=== PATIENT | male | born 1945 | race Caucasian/White ===

== ENCOUNTER 2023-05-07 15:06 | Outpatient (RCR) | payer MEDICARE, SELFPAY | END 2023-05-07 23:59 | disposition home or self-care (01) | LOC: CRHB 15:06 | PROVIDERS: ATTENDING PHYSICIAN Internal Medicine Cardiovascular Disease | DX: I25.118 Atherosclerotic heart disease of native coronary artery with other forms of angina pectoris (principal) | CPT/HCPCS: G0422; G0423 ==

== ENCOUNTER 2023-06-04 15:00 | Outpatient (RCR) | payer MEDICARE, SELFPAY | END 2023-06-04 23:59 | disposition home or self-care (01) | LOC: CRHB 15:00 | PROVIDERS: ATTENDING PHYSICIAN Internal Medicine Cardiovascular Disease | DX: I25.118 Atherosclerotic heart disease of native coronary artery with other forms of angina pectoris (principal) | CPT/HCPCS: G0422; G0423 ==

== ENCOUNTER 2023-07-02 13:20 | Outpatient (RCR) | payer MEDICARE, SELFPAY | END 2023-07-02 23:59 | disposition home or self-care (01) | LOC: CRHB 13:20 | PROVIDERS: ATTENDING PHYSICIAN Internal Medicine Cardiovascular Disease | DX: I25.118 Atherosclerotic heart disease of native coronary artery with other forms of angina pectoris (principal) | CPT/HCPCS: G0422; G0423 ==

== ENCOUNTER 2023-07-11 13:32 | Outpatient (RCR) | payer MEDICARE, SELFPAY | END 2023-07-11 23:59 | disposition home or self-care (01) | LOC: CRHB 13:32 | PROVIDERS: ATTENDING PHYSICIAN Internal Medicine Cardiovascular Disease; FAMILY PHYSICIAN Family Medicine | DX: I25.118 Atherosclerotic heart disease of native coronary artery with other forms of angina pectoris (principal) | CPT/HCPCS: G0422; G0423 ==

== ENCOUNTER 2024-10-02 00:42 | Inpatient (IN) | payer MEDICARE, SELFPAY ==
[2024-10-01 19:33] VITALS: BP 162/62
[2024-10-01 22:06] VITALS: BMI 46.3
[2024-10-01 22:19] VITALS: BP 138/68
[2024-10-01 22:27] LABS: Hematocrit 40.2 % (39.0-52.0); Hemoglobin 14.4 g/dL (13.0-18.0); Mean Corp Hgb Conc. 35.8 g/dL (33.0-37.0); Mean Corpuscular Volume 100.8 fL (80.0-94.0); Nucleated Red Blood Cells % 0 % (-); Platelet Count 141 10^3/uL (130-400); Red Cell Dist. Width 13.5 % (11.5-14.5)
[2024-10-01 22:47] LABS: ALT (SGPT) 18 U/L (0-50); AST (SGOT) 23 U/L (17-59); Albumin 3.9 g/dl (3.5-5.0); Alkaline Phosphatase 51 U/L (38-126); Blood Urea Nitrogen 21 mg/dl (9-20); Calcium 9.3 mg/dl (8.4-10.2); Carbon Dioxide 24 mmol/L (22-30); Chloride 104 mmol/L (98-107); Estimated Creatinine Clearance 85 ml/min; Glucose 96 mg/dl (70-99); Potassium 4.6 mmol/L (3.5-5.1); Sodium 133 mmol/L (135-145); Total Protein 6.4 g/dl (6.3-8.2); eGFR > 60.00
[2024-10-01] MEDS: NSS 1000 IV (23:54)
--- NOTE | 2024-10-01 23:54 | ED.GENMED ---
History of Present Illness
General
Chief Complaint: Skin Problem
Source: patient, spouse and previous hospital records (Outpatient cardiac rehab which completed September 2023)
Exam Limitations: none
Time Seen by Provider: 10/01/24 23:28
Nursing documentation reviewed up to this point in time: agreed with
History of Present Illness
History of Present Illness:
This is an 78-year-old obese gentleman who resides at home with his . He has history of hypertension, hyperlipidemia, CAD, prior history of CO as well as history of PTCA with stent to the right coronary artery.
He states approximately 1 week ago he noticed some redness to his left great toe about the nail. Self-treatment with lifting of the nail and applying local bacitracin resulted in resolution of redness and swelling of his left great toe but today he
noticed redness and pain left lower leg anterior aspect that has gotten progressively worse throughout the day today.
He has chronic swelling bilateral lower extremities left greater than right. Mild increase in global swelling left lower leg along with progressive redness left lower leg. He has not noticed a fever nor chills.
No history of diabetes, no history of similar episodes in the past. No recent trauma.
He was evaluated at urgent care today. Had blood work done that showed elevated white blood cell count of 18. Sent to the ED for further evaluation.
Past History
Past History
ED Past Medical History: CAD, GERD, HTN, Hypercholesterolemia and CO
ED Past Surgical History: Cardiac (PTCA with stent to the right coronary artery 2016. cardiac catheterization January 2023-blockage of right coronary artery-unamenable to PTCA recommended medical management versus CABG.)
Social History
Tobacco: Non-smoker
Alcohol: None
Personal:
Living: with family
Employment: Retired
Family History
Family History: Other (Noncontributory)
Phy Exam
Physical Exam
Physical Exam:
GENERAL: 78-year-old gentleman appears his stated age, awake and alert, pleasant, easily communicative. Accompanied by his . Low-grade fever of 100.3 �F noted.
EYE: anicteric
NECK: Supple, nontender, no meningismus, no significant adenopathy.
ENT: oral mucosa is moist. No rhinorrhea.
CARDIAC: Regular rate and rhythm. no murmur.
LUNGS: Clear breath sounds bilaterally, no acute respiratory distress, no wheezes/rales/rhonchi
ABDOMEN: Rotund, soft, nondistended, without focal tenderness, no r/g, no cvat. normoactive BS.
NEUROLOGICAL: Alert and oriented x3, no focal neuro deficits.
SKIN: Warm and dry, normal color, fair turgor. Left lower leg with global erythema most pronounced anterior aspect but circumferential. Left lower leg is warm to touch, mild local tenderness to palpation. Mildly tense global edema left lower
extremity. There is no lymphangitis. Bilateral distal toes are mildly dusky and mildly cool to touch.
MUSCULOSKELETAL: Bilateral lower extremity edema left greater than right. Dorsalis pedal pulses equal and palpable bilaterally. Peripheral pulses are full and equal b/l.
PSYCH: Normal and appropriate interaction.
Course
Orders/Labs/Results
Orders:
Orders
10/01/24 22:17
Complete Blood Count/With Diff Urgent
Comprehensive Metabolic Panel Urgent
10/01/24 23:37
Acetaminophen [Tylenol] 1,000 mg PO NOW STA
Piperacillin/Tazo 4.5 Gram [Zosyn] 4.5 gram in 100 ml IV NOW
10/01/24 23:45
0.9% Sodium Chloride 1000 ml [Nss] 1,000 ml IV BOLUS
10/01/24 23:51
Lactic Acid Urgent
Blood Culture Q30M
GILA Source: Blood/Venous
Specimen Description:
10/02/24 00:00
Blood Culture Q30M
GILA Source: Blood/Venous
Specimen Description:
CR Leg Tibia/fibula Left 2 Vw Urgent
Reason For Exam: cellulitis LLE, swelling-concern for SQ air
10/02/24 00:02
Blood Culture Urgent
GILA Source: Blood/Venous
Specimen Description:
10/02/24 00:13
Admit/Transfer Patient As Directed
Co-Sign Provider:
Level of Care: Inpatient admission
Assign to:: Medical/Surgical
Physician / Group: Michael
Diagnosis: Cellulitis
Reason for Hospitalization: Cellulitis
Expected length of stay greater than two midnights?: Yes
ELOS- Estimated Length of Stay in days: 2
I certify the patient meets the requirements for IP care: Yes
PRN Pain Medication Management As Directed
May give lesser potent ordered pain med per pt: Yes
preference::
Protocol:: Medication orders for pain may be administered in a
manner that supports deferring to patient preference
when the pt is:
- Requesting an ordered lesser potent pain medication.
Least to most potent pain medications are defined
as: acetaminophen < NSAID < tramadol < opioids
(morphine, oxycodone, hydromorphone).
- Requesting a lesser dose of the same medication IF
ORDERED.
- Requesting a less intrusive route of administration
if both routes are prescribed by the provider (PO <
IV).
10/02/24 00:15
Code Status As Directed
Resuscitation Status: Full Code
10/02/24 01:23
Acetaminophen [Tylenol] 650 mg PO Q4HPRN PRN
10/02/24 01:23
Activity As Directed
Activity Level: Ambulate
With Assistance
Elevate Extremity As Directed
Extremity:: LLE
I/O [Intake/ Output] As Directed
Frequency: Per unit guidelines
Vital Signs As Directed
Frequency: Per unit guidelines
Weight As Directed
Frequency: Daily
Oxygen Therapy [O2 Therapy] [RESP] Routine
Titrate/Wean O2 to maintain O2 sat greater than (%): 94
DX Deep Vein Thrombosis Video Routine
10/02/24 Breakfast
Regular
At Your Request: Full Participation
Does patient need a safe tray?: No
Fluid Restriction: 1440 mL/day (48 oz)
Basic Metabolic Panel IN AM
Complete Blood Count/No Diff IN AM
10/02/24 08:00
Aspirin Low Dose EC [Aspir Low (Enteric Coated)] 81 mg PO DAILY
CeFAZolin 2 GRAM [Ancef] 2 grams in 10 ml IV Q8H
Divalproex Delayed Rel. 12 Hr [Depakote (12 Hr Release)] 250 mg PO TID
Heparin 5,000 units SC Q8
ISOSORBIDE MONOnitrate ER [Imdur (Extended Release)] 30 mg PO DAILY
Lisinopril [Zestril] 20 mg PO DAILY
Metoprolol Xl [Toprol Xl] 50 mg PO BID
Pantoprazole [Protonix] 40 mg PO DAILY
Ranolazine Extended Release [Ranexa Extended Release] 500 mg PO BID
10/02/24 18:00
Ezetimibe [Zetia] 10 mg PO QPM
10/02/24 22:00
Atorvastatin [Lipitor] 80 mg PO HS
Abnormal Lab Results
10/01/24
22:17
WBC 17.3 H 10^3/uL
(4.8-10.8)
RBC 3.99 L 10^6/uL
(4.70-6.10)
MCV 100.8 H fL
(80.0-94.0)
MCH 36.1 H pg
(27.0-31.0)
MPV 11.0 H fL
(7.4-10.4)
Abs Immat Gran (auto) 0.1 H 10^3/uL
(0-0.05)
Absolute Neuts (auto) 13.4 H 10^3/uL
(1.4-6.5)
Absolute Monos (auto) 2.1 H 10^3/uL
(0.1-0.6)
Neutrophils % 77.6 H %
(42.2-75.2)
Lymphocytes % 9.0 L %
(20.5-51.1)
Monocytes % 12.4 H %
(1.7-9.3)
Sodium 133 L mmol/L
(135-145)
BUN 21 H mg/dl
(9-20)
10/01/24 22:17
10/01/24 22:17
Vital Signs
Temp: 100.3 F
Initial and Last Documented VS:
Initial Vital Signs
Temp Pulse Resp BP Pulse Ox
99.4 F 84 20 162/62 96
10/01/24 19:33 10/01/24 19:33 10/01/24 19:33 10/01/24 19:33 10/01/24 19:33
Last Documented Vital Signs
Temp Pulse Resp BP Pulse Ox
97.9 F 80 20 136/64 94
10/02/24 07:25 10/02/24 07:25 10/02/24 07:25 10/02/24 07:25 10/02/24 07:25
MDM/Problems Addressed
Differential Diagnosis Includes:
History and exam consistent with left lower extremity cellulitis. Concern for rapidly progressive cellulitis throughout the day today.
Low-grade fever noted 100.3 �F.
Markedly elevated white blood cell count near 18,000.
Consistent with SIRS, must consider sepsis.
Will check lactic acid, blood cultures.
Will check x-ray left lower extremity assess for subcutaneous gas.
Will initiate IV Zosyn. Consider IV vancomycin.
Patient reports no prior history of MRSA and records reveal routine MRSA screen negative in the past.
Due to rapid progression, fever, elevated white blood cell count patient will require initiation of IV antibiotics and hospitalization.
Chronic conditions affecting care: HTN and CAD
*Radiology
Radiology exam reviewed: preliminary read by ED provider (Soft tissue swelling about the lower leg. No evidence of soft tissue gas nor foreign body.)
*Pulse Oximetry
SaO2: 98
Oxygen Mode of Delivery: Room air
Patient hypoxic: no
*Critical Care Note
Total Time (30-74mins, 75-104mins- exclusive of procedures): Not Applicable
ED Attending Note
-
Portions of this chart may have been created with voice recognition software.� Occasional wrong word or��sound alike� substitutions may have occurred due to the inherent limitations of voice recognition software.
Discharge Plan
Departure
Patient Disposition: Admit
Date of Disposition: 10/01/24
Time of Disposition: 23:45
Admit to: Med/Surg
Admit to doctor: Michael
Presentation/result/management discussed w/ accepting MD/DO: Hospitalist
Condition: Fair
Discharge Problem:
Cellulitis of left lower extremity, SIRS (systemic inflammatory response syndrome)
Interventions
Interventions:
*Risk Screen - Suicide Last Done: 10/02/24 01:35
*General Assessment Last Done: 10/01/24 19:33
*Neglect/Abuse Screening Last Done: 10/01/24 19:33
*ED- Fall Risk Assessment Last Done: 10/01/24 22:06
*ED COVID-19 Vaccine History Last Done: 10/02/24 01:35
*Nursing Disposition Last Done: 10/02/24 01:13
ED-Skin Assessment Last Done: 10/01/24 22:08
Discharge Date and Time
Discharge Date/Time: 10/02/24 01:14
[2024-10-01] MEDS: TYLENOL 1000 MG PO (23:55)
--- NOTE | 2024-10-02 00:17 | HPS.HSE ---
Family Physician
-
Family Physician: Axel Walker
Chief Complaint
-
LLE redness
History of Present Illness
Patient is an 78y M with PMH significant for ASCVD, hypertension and obesity who presents to ED complaining of LLE swelling and redness. Patient states that symptoms initially began with redness and ingrown toenail on the L great toe. He was
able to excise the nail portion himself and treated the area locally with Neosporin for several days. The redness of the toe improved; however, for the past 4 days he has developed increased redness, swelling and warmth in the L lower leg from the
ankle to the knee. He reports poor appetite and general malaise. No fevers / chills. No N/V.
Medical History
Past Medical History
Past Medical History: Reports Other
Additional Past Medical History:
ASCVD
Hypertension
Dyslipidemia
Morbid Obesity
Seizure Disorder (last seizure 60+ yrs ago)
Past Surgical History: Reports Other
Additional Past Surgical History:
PTCA with Stent
Cataracts
Left Vitrectomy
T&A
Social History
Tobacco: Non-smoker
Alcohol: Occasional
Drug: None
Family History
Family History: Not pertinent
Allergies / Home Medications
Allergies reflects when Allergies were last updated in [employer].
Home Medications with original date entered in [employer]
Allergy/Medication List:
Allergies
Allergy/AdvReac Type Severity Reaction Status Date / Time
No Known Allergies Allergy Verified 10/01/24 19:38
Home Medications
aspirin 81 mg tablet,delayed release (Adult Low Dose Aspirin) 81 mg PO DAILY 10/24/16
divalproex 250 mg tablet,delayed release 250 mg PO TID 10/24/16
rabeprazole 20 mg tablet,delayed release (AcipHex) 20 mg PO DAILY 10/24/16
amlodipine 2.5 mg tablet 2.5 mg PO DAILY 01/21/23
atorvastatin 80 mg tablet 80 mg PO HS 01/21/23
ezetimibe 10 mg tablet 10 mg PO QPM 01/21/23
lisinopril 20 mg tablet 20 mg PO DAILY 01/21/23
isosorbide mononitrate 30 mg tablet,extended release 24 hr 30 mg PO DAILY #90 tabs 01/22/23
metoprolol succinate 50 mg tablet,extended release 24 hr 50 mg PO BID 10/02/24
ranolazine 500 mg tablet,extended release,12 hr 500 mg PO BID 10/02/24
Review of Systems
-
History Source: Patient
A 12 point ROS was completed and negative except as noted: Yes
Constitutional: Reports Fatigue; Denies Fever or Chills
Respiratory: Denies Cough or Trouble Breathing
Cardiac: Denies Chest Pain or Palpitations
Abdomen/GI: Denies Abdominal Pain, Nausea, Vomiting or Diarrhea
: Denies Dysuria or Frequency
Musculoskeletal: Reports Edema; Denies Joint Pain
Skin: Reports Rash and Other (redness)
Neurological: Denies Dizzy or Headache
Physical Exam
Vital Signs
Vital Signs
Temp Pulse Resp BP Pulse Ox
100.3 F 78 16 138/68 98
10/02/24 00:06 10/01/24 22:19 10/01/24 22:19 10/01/24 22:19 10/02/24 00:06
Physical Exam
General: Other ( 78y M in no acute distress.)
HEENT: Moist mucous membranes and PERRLA
Respiratory: Clear; No Wheezes, Rales or Rhonchi
Cardiac: S1/S2 and Regular Rhythm; No Murmur
GI: Soft, Non Tender, Non Distended and Normal Bowel Sounds
Musculoskeletal: No Clubbing and Other (3-4+ pitting edema b/l LEs - L > R. )
Skin: Other (Patchy erythema, increased warmth and tenderness of the LLE from the knee to the ankle. No open wound, ulceration, etc.)
Neuro: AO x 3
Laboratory Results
-
10/01/24 22:17
10/01/24 22:17
Laboratory Results
Total Bilirubin 1.0 mg/dl (0.2-1.3) 10/01/24 22:17
AST 23 U/L (17-59) 10/01/24 22:17
ALT 18 U/L (0-50) 10/01/24 22:17
Alkaline Phosphatase 51 U/L (38-126) 10/01/24 22:17
Impression/Plan
-
A/P: Patient is an 78y M with PMH significant for ASCVD, hypertension and obesity who presents to ED complaining of LLE redness and swelling x 4 days.
LLE Cellulitis
- Admit for further evaluation and treatment.
- WBC = 17k. T max in the ED = 100.3.
- Likely secondary to initial ingrown toenail / distal infection.
- IV abx with Ancef and follow for clinical improvement.
- Change to PO regimen once appropriate.
- Elevate LEs.
ASCVD
- Stable. Chest pain well-controlled with current anti-anginal regimen.
- Hold amlodipine acutely given edema.
- Follow I/Os, daily weights, etc.
- Not on chronic diuretic regimen.
- Follow for improvement with elevation, treatment of infection.
- Consider further evaluation, echo, etc if edema worsens or persists.
- Continue other CV med regimen including Ranexa, statin, metoprolol, etc.
Benign Hypertension
- Stable. Continue lisinopril, metoprolol, etc.
- Holding amlodipine acutely as noted above.
- Adjust as needed.
Seizure Disorder
- Stable. Last seizure activity was over 60 years ago per patient.
- Continue current Depakote regimen without changes.
GERD
- Stable. Continue daily PPI.
Morbid Obesity due to excess calories
- Affects all aspects of care.
- Encourage healthy diet and increased activity with goal of weight reduction.
DVT Prophylaxis: Subcut Heparin
Code Status: Full
[2024-10-02 00:44] VITALS: BP 116/61
[2024-10-02] MEDS: ZOSYN 100 IV (00:44)
[2024-10-02 01:36] VITALS: BP 142/68; BMI 45.3
[2024-10-02 07:25] VITALS: BP 136/64
[2024-10-02] MEDS: DEPAKOTE (12 HR RELEASE) 250 MG PO ×3 (07:52→21:28)
[2024-10-02] MEDS: RANEXA EXTENDED RELEASE 500 MG PO ×2 (07:52→20:15)
[2024-10-02] MEDS: PROTONIX 40 MG PO (07:54)
[2024-10-02] MEDS: IMDUR (EXTENDED RELEASE) 30 MG PO (07:54)
[2024-10-02] MEDS: ANCEF 10 IV ×2 (07:54→15:54)
[2024-10-02] MEDS: ASPIR LOW (ENTERIC COATED) 81 MG PO (07:55)
[2024-10-02] MEDS: HEPARIN 5000 UNITS SC ×2 (07:55→15:54)
[2024-10-02] MEDS: TOPROL XL 50 MG PO ×2 (08:01→20:15)
[2024-10-02] MEDS: ZESTRIL 20 MG PO (08:01)
[2024-10-02 09:06] LABS: Hematocrit 41.3 % (39.0-52.0); Hemoglobin 13.9 g/dL (13.0-18.0); Mean Corp Hgb Conc. 33.7 g/dL (33.0-37.0); Mean Corpuscular Volume 102.7 fL (80.0-94.0); Platelet Count 140 10^3/uL (130-400); Red Cell Dist. Width 13.5 % (11.5-14.5)
[2024-10-02 09:23] LABS: Blood Urea Nitrogen 17 mg/dl (9-20); Calcium 8.9 mg/dl (8.4-10.2); Carbon Dioxide 23 mmol/L (22-30); Chloride 104 mmol/L (98-107); Estimated Creatinine Clearance 94 ml/min; Glucose 96 mg/dl (70-99); Potassium 4.5 mmol/L (3.5-5.1); Sodium 134 mmol/L (135-145); eGFR > 60.00
--- NOTE | 2024-10-02 10:23 | W.PN.HOSP.TC ---
Today's Communication/Plan
-
Elevate left lower extremity
Venous Doppler ultrasound left lower extremity
Continue IV cefazolin
Await cultures
Assessment / Plan
Assessment / Plan
Gen-AAOx3, NAD, morbid obesity
HEENT-NC, AT, anicteric, clear oral mm
Neck-supple
CV-reg, no M, +S1/S2
Lungs-clear B/L
Abd-soft, NT, ND
Ext-diffuse left lower extremity edema from knee to ankle, diffuse left lower extremity erythema in blotches
Musculoskeletal-no cyanosis, clubbing
Skin-warm and dry
Neuro-grossly non-focal
Psych-calm, cooperative
Sepsis due to left lower extremity cellulitis -hemodynamically stable. Continue IV cefazolin. Blood cultures pending. Leukocytosis noted. Fever resolved.
Check Doppler ultrasound left lower extremity given significant edema.
Denies history of cellulitis.
Weight loss encouraged. Patient is currently not pursuing weight loss measures. Discussed importance including risks of recurrent cellulitis and other health effects of being obese.
Hyponatremia -134, monitor for now.
CAD -stable.
Essential hypertension -stable.
Epilepsy -continue AEDs.
Hyperlipidemia -atorvastatin.
GERD
Morbid obesity due to excess calories
Full code
Anticipated Discharge: > 48 hours
Subjective/Interval History
-
Date of Service: October 02, 2024
Patient seen and examined. Complaining of left lower extremity swelling, redness.
Objective Data
-
Labs:
Laboratory Results
10/01/24 10/02/24
22:17 08:24
WBC 17.3 H 16.4 H
Hgb 14.4 13.9
Hct 40.2 41.3
Plt Count 141 140
Sodium 133 L 134 L
Potassium 4.6 4.5
Chloride 104 104
Carbon Dioxide 24 23
BUN 21 H 17
Creatinine 1.0 0.9
Glucose 96 96
Calcium 9.3 8.9
Total Bilirubin 1.0
AST 23
ALT 18
Alkaline Phosphatase 51
Vital Signs:
Vital Signs
Temp Pulse Resp BP Pulse Ox
97.9 F 80 20 136/64 94
10/02/24 07:25 10/02/24 07:25 10/02/24 07:25 10/02/24 07:25 10/02/24 07:25
I&O
10/01/24 10/02/24 10/03/24
06:59 06:59 06:59
Intake Total 0 / 0
Output Total 0 / 0
Balance 0 / 0
Review of Systems
-
History Source: Patient
All other systems: Reviewed and negative
[2024-10-02 15:22] VITALS: BP 140/66
[2024-10-02] MEDS: TYLENOL 650 MG PO (15:49)
[2024-10-02] MEDS: ZETIA 10 MG PO (16:58)
[2024-10-02] MEDS: LIPITOR 80 MG PO (21:28)
[2024-10-02 23:23] VITALS: BP 112/67
[2024-10-03] MEDS: ANCEF 10 IV ×4 (00:09→23:06)
[2024-10-03] MEDS: HEPARIN 5000 UNITS SC ×4 (00:09→23:07)
[2024-10-03 06:05] VITALS: BMI 45.2
[2024-10-03 07:15] LABS: Hematocrit 37.1 % (39.0-52.0); Hemoglobin 12.8 g/dL (13.0-18.0); Mean Corp Hgb Conc. 34.5 g/dL (33.0-37.0); Mean Corpuscular Volume 102.2 fL (80.0-94.0); Nucleated Red Blood Cells % 0 % (-); Platelet Count 138 10^3/uL (130-400); Red Cell Dist. Width 13.4 % (11.5-14.5)
[2024-10-03] MEDS: PROTONIX 40 MG PO (07:29)
[2024-10-03] MEDS: RANEXA EXTENDED RELEASE 500 MG PO ×2 (07:29→20:45)
[2024-10-03] MEDS: IMDUR (EXTENDED RELEASE) 30 MG PO (07:29)
[2024-10-03] MEDS: ZESTRIL 20 MG PO (07:29)
[2024-10-03] MEDS: TOPROL XL 50 MG PO ×2 (07:29→20:47)
[2024-10-03] MEDS: ASPIR LOW (ENTERIC COATED) 81 MG PO (07:29)
[2024-10-03] MEDS: DEPAKOTE (12 HR RELEASE) 250 MG PO ×4 (07:30→23:00)
[2024-10-03 07:36] VITALS: BP 120/57
--- NOTE | 2024-10-03 11:02 | W.PN.HOSP.TC ---
Today's Communication/Plan
-
Continue antibiotics
Compression therapy
Elevate left lower extremity
Assessment / Plan
Assessment / Plan
Gen-AAOx3, NAD, morbid obesity
HEENT-NC, AT, anicteric, clear oral mm
Neck-supple
CV-reg, no M, +S1/S2
Lungs-clear B/L
Abd-soft, NT, ND
Ext-diffuse left lower extremity edema from knee to ankle, diffuse left lower extremity erythema in blotches
Musculoskeletal-no cyanosis, clubbing
Skin-warm and dry
Neuro-grossly non-focal
Psych-calm, cooperative
Sepsis due to left lower extremity cellulitis -hemodynamically stable. Continue IV cefazolin. Still with significant erythema on exam. Blood cultures negative. Leukocytosis improving. Afebrile this morning.
Doppler ultrasound negative for DVT.
Denies history of cellulitis.
Weight loss encouraged. Patient is currently not pursuing weight loss measures. Discussed importance including risks of recurrent cellulitis and other health effects of being obese.
Significant lymphedema on exam. Compression therapy ordered with Rosas wraps. Discussed with patient and nursing.
Hyponatremia -134, monitor for now.
CAD -stable.
Essential hypertension -stable.
Epilepsy -continue AEDs.
Hyperlipidemia -atorvastatin.
GERD
Morbid obesity due to excess calories
Full code
Anticipated Discharge: > 48 hours
Subjective/Interval History
-
Date of Service: October 03, 2024
Patient seen and examined. Still with left lower extremity swelling, redness. Denies significant pain.
Objective Data
-
Labs:
Laboratory Results
10/03/24
06:47
WBC 12.3 H
Hgb 12.8 L
Hct 37.1 L
Plt Count 138
Vital Signs:
Vital Signs
Temp Pulse Resp BP Pulse Ox
98.2 F 69 20 120/57 94
10/03/24 07:36 10/03/24 07:36 10/03/24 07:36 10/03/24 07:36 10/03/24 07:36
I&O
10/02/24 10/03/24 10/04/24
06:59 06:59 06:59
Intake Total 0 / 0 820 / 820
Output Total 0 / 0
Balance 0 / 0 820 / 820
Review of Systems
-
History Source: Patient
All other systems: Reviewed and negative
--- NOTE | 2024-10-03 11:13 | CM ---
Patient seen bedside, initial assessment completed. Patient is an 78y M with PMH significant for ASCVD, hypertension and obesity who presents to ED complaining of LLE swelling and redness.
Patient resides w/ spouse in a 2sty twin home. Patient enters through his garage, then through the laundry room where there are 11 steps up into the living room. Patient is independent in all areas, no DME. OP therapy at [facility] center in the past.
No SNF/HC hx.
Address, point of contact and insurance verified
PCP: Axel Walker
Pharmacy: [facility]
Cont abx
PT eval ordered
Plan: Home, will watch for needs
[2024-10-03 11:42] VITALS: BP 112/44; PULSE 78
[2024-10-03 15:26] VITALS: BP 134/67
[2024-10-03] MEDS: ZETIA 10 MG PO (16:41)
[2024-10-03 17:43] VITALS: BMI 45.5
[2024-10-03] MEDS: LIPITOR 80 MG PO (20:45)
[2024-10-03] MEDS: TYLENOL 650 MG PO (23:06)
[2024-10-03 23:31] VITALS: BP 146/61
[2024-10-04 05:27] VITALS: BMI 44.9
[2024-10-04 07:00] VITALS: BP 100/76
[2024-10-04] MEDS: HEPARIN 5000 UNITS SC ×3 (07:59→23:27)
[2024-10-04] MEDS: ASPIR LOW (ENTERIC COATED) 81 MG PO (08:00)
[2024-10-04] MEDS: TOPROL XL 50 MG PO ×2 (08:00→20:00)
[2024-10-04] MEDS: DEPAKOTE (12 HR RELEASE) 250 MG PO ×3 (08:01→20:00)
[2024-10-04] MEDS: ZESTRIL 20 MG PO (08:01)
[2024-10-04] MEDS: IMDUR (EXTENDED RELEASE) 30 MG PO (08:01)
[2024-10-04] MEDS: RANEXA EXTENDED RELEASE 500 MG PO ×2 (08:01→20:00)
[2024-10-04] MEDS: PROTONIX 40 MG PO (08:01)
[2024-10-04] MEDS: ANCEF 10 IV ×3 (08:01→23:27)
[2024-10-04 08:09] LABS: Hematocrit 39.0 % (39.0-52.0); Hemoglobin 13.2 g/dL (13.0-18.0); Mean Corp Hgb Conc. 33.8 g/dL (33.0-37.0); Mean Corpuscular Volume 102.6 fL (80.0-94.0); Nucleated Red Blood Cells % 0 % (-); Platelet Count 153 10^3/uL (130-400); Red Cell Dist. Width 13.6 % (11.5-14.5)
--- NOTE | 2024-10-04 10:31 | CM ---
Patient to return to home at discharge, patient has declined the need for visiting nurses at discharge.
Plan; Home no needs.
--- NOTE | 2024-10-04 14:30 | W.PN.HOSP.TC ---
Today's Communication/Plan
-
Continue antibiotics
Compression therapy
Elevate left lower extremity
Assessment / Plan
Assessment / Plan
Gen-AAOx3, NAD, morbid obesity
HEENT-NC, AT, anicteric, clear oral mm
Neck-supple
CV-reg, no M, +S1/S2
Lungs-clear B/L
Abd-soft, NT, ND
Ext-diffuse left lower extremity edema from knee to ankle, diffuse left lower extremity erythema in blotches
Musculoskeletal-no cyanosis, clubbing
Skin-warm and dry
Neuro-grossly non-focal
Psych-calm, cooperative
Sepsis due to left lower extremity cellulitis -hemodynamically stable. Continue IV cefazolin. Still with significant erythema on exam - appears to be improving now that on Compression therapy ordered with Rosas wraps.. Blood cultures negative.
Leukocytosis improving. Afebrile this morning.
Doppler ultrasound negative for DVT.
Denies history of cellulitis.
Weight loss encouraged. Patient is currently not pursuing weight loss measures. Discussed importance including risks of recurrent cellulitis and other health effects of being obese.
Significant lymphedema on exam. Discussed with patient and nursing.
Hyponatremia -134, monitor for now.
CAD -stable.
Essential hypertension -stable.
Epilepsy -continue AEDs.
Hyperlipidemia -atorvastatin.
GERD
Morbid obesity due to excess calories
Full code
Anticipated Discharge: 24 - 48 hours
Subjective/Interval History
-
Date of Service: October 04, 2024
Erythema appears to be somewhat improving
Objective Data
-
Labs:
Laboratory Results
10/04/24
07:32
WBC 11.6 H
Hgb 13.2
Hct 39.0
Plt Count 153
Vital Signs:
Vital Signs
Temp Pulse Resp BP Pulse Ox
99.4 F 103 20 100/76 95
10/04/24 07:00 10/04/24 07:00 10/04/24 07:00 10/04/24 07:00 10/04/24 07:00
I&O
10/03/24 10/04/24 10/05/24
06:59 06:59 06:59
Intake Total 820 / 820 480 / 480
Balance 820 / 820 480 / 480
Review of Systems
-
History Source: Patient
All other systems: Not reviewed unless documented
Data Reviewed
-
Diagnostic Radiology: Report Reviewed by me
Ultrasound: Report Reviewed by me
Labs: Labs Reviewed by me
[2024-10-04 15:23] VITALS: BP 134/67
[2024-10-04] MEDS: ZETIA 10 MG PO (17:45)
[2024-10-04] MEDS: LIPITOR 80 MG PO (20:00)
[2024-10-04 23:00] VITALS: BP 132/72
[2024-10-05 02:30] VITALS: BP 127/59
[2024-10-05 04:40] VITALS: BMI 45.4
[2024-10-05] MEDS: DEPAKOTE (12 HR RELEASE) 250 MG PO ×3 (07:40→19:37)
[2024-10-05] MEDS: ANCEF 10 IV ×3 (07:40→23:09)
[2024-10-05] MEDS: IMDUR (EXTENDED RELEASE) 30 MG PO (07:41)
[2024-10-05] MEDS: RANEXA EXTENDED RELEASE 500 MG PO ×2 (07:41→19:37)
[2024-10-05] MEDS: ASPIR LOW (ENTERIC COATED) 81 MG PO (07:41)
[2024-10-05] MEDS: TOPROL XL 50 MG PO ×2 (07:41→19:37)
[2024-10-05] MEDS: PROTONIX 40 MG PO (07:41)
[2024-10-05] MEDS: ZESTRIL 20 MG PO (07:42)
[2024-10-05] MEDS: HEPARIN 5000 UNITS SC ×3 (07:42→23:09)
[2024-10-05 07:53] VITALS: BP 101/55
[2024-10-05 07:57] LABS: Hematocrit 38.7 % (39.0-52.0); Hemoglobin 13.2 g/dL (13.0-18.0); Mean Corp Hgb Conc. 34.1 g/dL (33.0-37.0); Mean Corpuscular Volume 101.6 fL (80.0-94.0); Platelet Count 176 10^3/uL (130-400); Red Cell Dist. Width 13.4 % (11.5-14.5)
[2024-10-05 09:09] LABS: Blood Urea Nitrogen 17 mg/dl (9-20); Estimated Creatinine Clearance 105 ml/min; Glucose 91 mg/dl (70-99)
[2024-10-05 09:10] LABS: Calcium 8.7 mg/dl (8.4-10.2); Carbon Dioxide 25 mmol/L (22-30); Chloride 105 mmol/L (98-107); Potassium 4.7 mmol/L (3.5-5.1); Sodium 137 mmol/L (135-145); eGFR > 60.00
--- NOTE | 2024-10-05 13:42 | CM ---
Chart reviewed and high risk case manager met with patient and plan is to home with spouse when stable.
Plan; Home with spouse.
[2024-10-05 14:30] VITALS: BP 127/59
--- NOTE | 2024-10-05 14:32 | W.PN.HOSP.TC ---
Today's Communication/Plan
-
rosas compressions
abx
if spikes temp >101 - will need to culture and consider changing abx
Assessment / Plan
Assessment / Plan
Gen-AAOx3, NAD, morbid obesity
HEENT-NC, AT, anicteric, clear oral mm
Neck-supple
CV-reg, no M, +S1/S2
Lungs-clear B/L
Abd-soft, NT, ND
Ext-diffuse left lower extremity edema from knee to ankle, diffuse left lower extremity erythema in blotches; Foot appears to have improved
Musculoskeletal-no cyanosis, clubbing
Skin-warm and dry
Neuro-grossly non-focal
Psych-calm, cooperative
Sepsis due to left lower extremity cellulitis -hemodynamically stable. Continue IV cefazolin. Still with significant erythema on exam - appears to be improving now that on Compression therapy ordered with Rosas wraps.. Blood cultures negative.
Leukocytosis improving. Afebrile this morning.
Doppler ultrasound negative for DVT.
Denies history of cellulitis.
Weight loss encouraged. Patient is currently not pursuing weight loss measures. Discussed importance including risks of recurrent cellulitis and other health effects of being obese.
Significant lymphedema on exam. Discussed with patient and nursing.
Hyponatremia - monitor for now.
CAD -stable.
Essential hypertension -stable.
Epilepsy -continue AEDs.
Hyperlipidemia -atorvastatin.
GERD
Morbid obesity due to excess calories
Full code
Anticipated Discharge: 24 - 48 hours
Subjective/Interval History
-
Date of Service: October 05, 2024
no acute events overnight; foot appears somewhat improved although erythema persists at level of the hester
Objective Data
-
Labs:
Laboratory Results
10/05/24
07:16
WBC 11.7 H
Hgb 13.2
Hct 38.7 L
Plt Count 176
Sodium 137
Potassium 4.7
Chloride 105
Carbon Dioxide 25
BUN 17
Creatinine 0.8
Glucose 91
Calcium 8.7
Vital Signs:
Vital Signs
Temp Pulse Resp BP Pulse Ox
99.0 F 76 18 101/55 97
10/05/24 07:53 10/05/24 07:53 10/05/24 07:53 10/05/24 07:53 10/05/24 07:53
I&O
10/04/24 10/05/24 10/06/24
06:59 06:59 06:59
Intake Total 480 / 480 480 / 480
Balance 480 / 480 480 / 480
Review of Systems
-
History Source: Patient
All other systems: Not reviewed unless documented
Data Reviewed
-
Diagnostic Radiology: Report Reviewed by me
Ultrasound: Report Reviewed by me
Labs: Labs Reviewed by me
[2024-10-05] MEDS: ZETIA 10 MG PO (17:45)
[2024-10-05] MEDS: LIPITOR 80 MG PO (19:37)
[2024-10-05 23:31] VITALS: BP 155/72
[2024-10-06 06:00] VITALS: BMI 45.3
[2024-10-06 07:27] LABS: Hematocrit 38.9 % (39.0-52.0); Hemoglobin 13.6 g/dL (13.0-18.0); Mean Corp Hgb Conc. 35.0 g/dL (33.0-37.0); Mean Corpuscular Volume 100.8 fL (80.0-94.0); Platelet Count 203 10^3/uL (130-400); Red Cell Dist. Width 13.4 % (11.5-14.5)
[2024-10-06] MEDS: HEPARIN 5000 UNITS SC ×3 (07:33→23:43)
[2024-10-06] MEDS: ANCEF 10 IV ×3 (07:33→23:43)
[2024-10-06] MEDS: RANEXA EXTENDED RELEASE 500 MG PO ×2 (07:34→22:05)
[2024-10-06] MEDS: IMDUR (EXTENDED RELEASE) 30 MG PO (07:34)
[2024-10-06] MEDS: ASPIR LOW (ENTERIC COATED) 81 MG PO (07:34)
[2024-10-06] MEDS: DEPAKOTE (12 HR RELEASE) 250 MG PO ×3 (07:34→22:05)
[2024-10-06] MEDS: TOPROL XL 50 MG PO ×2 (07:34→22:05)
[2024-10-06] MEDS: PROTONIX 40 MG PO (07:34)
[2024-10-06] MEDS: ZESTRIL 20 MG PO (07:34)
[2024-10-06 08:00] VITALS: BP 127/56
[2024-10-06 08:32] LABS: Blood Urea Nitrogen 20 mg/dl (9-20); Calcium 9.3 mg/dl (8.4-10.2); Carbon Dioxide 25 mmol/L (22-30); Chloride 105 mmol/L (98-107); Estimated Creatinine Clearance 105 ml/min; Glucose 101 mg/dl (70-99); Potassium 4.7 mmol/L (3.5-5.1); Sodium 135 mmol/L (135-145); eGFR > 60.00
--- NOTE | 2024-10-06 12:14 | CM ---
Chart reviewed and recommendation is for home with spouse no needs when stable.
Plan; To follow with paten progress, home no needs when stable.
[2024-10-06 12:45] VITALS: BP 147/66; PULSE 73
--- NOTE | 2024-10-06 13:12 | W.PN.HOSP.TC ---
Today's Communication/Plan
-
Continue antibiotics, Rosas compressions
Assessment / Plan
Assessment / Plan
Gen-AAOx3, NAD, morbid obesity
HEENT-NC, AT, anicteric, clear oral mm
Neck-supple
CV-reg, no M, +S1/S2
Lungs-clear B/L
Abd-soft, NT, ND
Ext-diffuse left lower extremity edema from knee to ankle, diffuse left lower extremity erythema in blotches; Foot appears to have improved
Musculoskeletal-no cyanosis, clubbing
Skin-warm and dry
Neuro-grossly non-focal
Psych-calm, cooperative
Sepsis due to left lower extremity cellulitis -hemodynamically stable. Continue IV cefazolin. Still with significant erythema on exam - appears to be improving now that on Compression therapy with Rosas wraps.. Blood cultures negative.
Leukocytosis improving. Afebrile this morning.
Doppler ultrasound negative for DVT.
Denies history of cellulitis.
Weight loss encouraged. Patient is currently not pursuing weight loss measures. Discussed importance including risks of recurrent cellulitis and other health effects of being obese.
Significant lymphedema on exam. Discussed with patient and nursing.
Hyponatremia - monitor for now.
CAD -stable.
Essential hypertension -stable.
Epilepsy -continue AEDs.
Hyperlipidemia -atorvastatin.
GERD
Morbid obesity due to excess calories
Full code
Anticipated Discharge: Within 24 hours
Subjective/Interval History
-
Date of Service: October 06, 2024
Erythema improving
Objective Data
-
Labs:
Laboratory Results
10/06/24
07:18
WBC 12.0 H
Hgb 13.6
Hct 38.9 L
Plt Count 203
Sodium 135
Potassium 4.7
Chloride 105
Carbon Dioxide 25
BUN 20
Creatinine 0.8
Glucose 101 H
Calcium 9.3
Vital Signs:
Vital Signs
Temp Pulse Resp BP Pulse Ox
98.2 F 75 16 127/56 97
10/06/24 08:00 10/06/24 08:00 10/06/24 08:00 10/06/24 08:00 10/06/24 08:00
I&O
10/05/24 10/06/24 10/07/24
06:59 06:59 06:59
Intake Total 480 / 480 360 / 360
Balance 480 / 480 360 / 360
Review of Systems
-
History Source: Patient
All other systems: Not reviewed unless documented
Data Reviewed
-
Diagnostic Radiology: Report Reviewed by me
Ultrasound: Report Reviewed by me
Labs: Labs Reviewed by me
[2024-10-06 16:00] VITALS: BP 125/52
[2024-10-06] MEDS: ZETIA 10 MG PO (16:28)
[2024-10-06 22:04] VITALS: BP 130/66
[2024-10-06] MEDS: LIPITOR 80 MG PO (22:05)
[2024-10-07 05:34] VITALS: BMI 45.3
[2024-10-07] MEDS: ZESTRIL 20 MG PO (07:33)
[2024-10-07] MEDS: DEPAKOTE (12 HR RELEASE) 250 MG PO ×2 (07:33→15:00)
[2024-10-07] MEDS: TOPROL XL 50 MG PO (07:33)
[2024-10-07] MEDS: ANCEF 10 IV ×2 (07:33→15:01)
[2024-10-07] MEDS: PROTONIX 40 MG PO (07:33)
[2024-10-07] MEDS: RANEXA EXTENDED RELEASE 500 MG PO (07:33)
[2024-10-07] MEDS: ASPIR LOW (ENTERIC COATED) 81 MG PO (07:33)
[2024-10-07] MEDS: IMDUR (EXTENDED RELEASE) 30 MG PO (07:33)
[2024-10-07] MEDS: HEPARIN 5000 UNITS SC ×2 (07:34→15:00)
[2024-10-07 07:53] VITALS: BP 142/63
[2024-10-07 07:53] LABS: Hematocrit 36.9 % (39.0-52.0); Hemoglobin 12.5 g/dL (13.0-18.0); Mean Corp Hgb Conc. 33.9 g/dL (33.0-37.0); Mean Corpuscular Volume 103.1 fL (80.0-94.0); Platelet Count 208 10^3/uL (130-400); Red Cell Dist. Width 13.3 % (11.5-14.5)
[2024-10-07 08:20] LABS: Blood Urea Nitrogen 18 mg/dl (9-20); Calcium 9.0 mg/dl (8.4-10.2); Carbon Dioxide 25 mmol/L (22-30); Chloride 106 mmol/L (98-107); Estimated Creatinine Clearance 94 ml/min; Glucose 92 mg/dl (70-99); Potassium 5.0 mmol/L (3.5-5.1); Sodium 136 mmol/L (135-145); eGFR > 60.00
--- NOTE | 2024-10-07 12:15 | CM ---
Patient is for discharge to home today, patient has declined visiting nurses, physician is aware.
Plan; Home with spouse, no needs.
--- NOTE | 2024-10-07 13:13 | W.PN.HOSP.TC ---
Addendum entered and electronically signed by Kj Escudero MD 10/08/24 16:23:
[id number]
Original Note:
Today's Communication/Plan
-
Compression wraps
Cephalexin 1000 mg every 8 hours for 10 additional days to complete 14-day course
Supplement to be
Follow-up PCP within 1 week
Follow-up CBC and CMP within 5 to 7 days
Assessment / Plan
Assessment / Plan
Gen-AAOx3, NAD, morbid obesity
HEENT-NC, AT, anicteric, clear oral mm
Neck-supple
CV-reg, no M, +S1/S2
Lungs-clear B/L
Abd-soft, NT, ND
Ext-diffuse left lower extremity edema from knee to ankle, diffuse left lower extremity erythema in blotches; Foot appears to have improved
Musculoskeletal-no cyanosis, clubbing
Skin-warm and dry
Neuro-grossly non-focal
Psych-calm, cooperative
Sepsis due to left lower extremity cellulitis -hemodynamically stable. Improved on cefazolin, leukocytosis improving. Blood cultures negative. Continue compression therapy with Rosas wrap's along with transitioning cefazolin to cephalexin 1000 mg
every 8 hours for additional 10 days to complete 14-day course.
Doppler ultrasound negative for DVT.
Denies history of cellulitis.
Weight loss encouraged. Patient is currently not pursuing weight loss measures. Discussed importance including risks of recurrent cellulitis and other health effects of being obese.
Significant lymphedema on exam. Discussed with patient and nursing. Compression wraps. Stop amlodipine
Hyponatremia - monitor for now.
CAD -stable.
Essential hypertension -stable., Stop amlodipine with lymphedema
Epilepsy -continue AEDs.
Hyperlipidemia -atorvastatin.
GERD
Morbid obesity due to excess calories
Full code
More than 30 minutes spent in discharge including
Final examination of the patient
Summarizing hospital stay
Instructions for continuing care to all relevant caregivers
Preparation of discharge records, prescriptions, and referral forms
Total time spent (in minutes): 36
Anticipated Discharge: Today
Subjective/Interval History
-
Date of Service: October 07, 2024
Erythema greatly improved
Objective Data
-
Labs:
Laboratory Results
10/07/24
06:14
WBC 10.2
Hgb 12.5 L
Hct 36.9 L
Plt Count 208
Sodium 136
Potassium 5.0
Chloride 106
Carbon Dioxide 25
BUN 18
Creatinine 0.9
Glucose 92
Calcium 9.0
Vital Signs:
Vital Signs
Temp Pulse Resp BP Pulse Ox
98.7 F 75 17 142/63 96
10/07/24 07:53 10/07/24 07:53 10/07/24 07:53 10/07/24 07:53 10/07/24 08:00
I&O
10/06/24 10/07/24 10/08/24
06:59 06:59 06:59
Intake Total 360 / 360 1440 / 1440
Balance 360 / 360 1440 / 1440
Review of Systems
-
History Source: Patient
All other systems: Not reviewed unless documented
Data Reviewed
-
Diagnostic Radiology: Report Reviewed by me
Ultrasound: Report Reviewed by me
Labs: Labs Reviewed by me
--- NOTE | 2024-10-07 13:15 | W.DS.TRANS ---
DC Summary - General Scrap Worker
-
Discharge Instructions:
Discharge Diagnosis/Procedures
Sepsis due to left lower extremity cellulitis
Diet Low Cholesterol,Low Fat
Activity As tolerated
Blood Work cbc and cmp in 5-7 days with pcp
Instructions:
Stand-Alone Forms:
Changes to Home Medications: Yes
Discharge Medications:
DC Medications w/original date entered in [employer]
aspirin 81 mg tablet,delayed release (Adult Low Dose Aspirin) 81 mg PO DAILY Blood Clot Prevention/Tx 10/24/16
divalproex 250 mg tablet,delayed release 250 mg PO TID Seizures 10/24/16
rabeprazole 20 mg tablet,delayed release (AcipHex) 20 mg PO DAILY Gastrointestinal Issue 10/24/16
atorvastatin 80 mg tablet 80 mg PO HS High Cholesterol 01/21/23
ezetimibe 10 mg tablet 10 mg PO QPM High Cholesterol 01/21/23
lisinopril 20 mg tablet 20 mg PO DAILY Blood Pressure 01/21/23
isosorbide mononitrate 30 mg tablet,extended release 24 hr 30 mg PO DAILY #90 tabs 01/22/23
metoprolol succinate 50 mg tablet,extended release 24 hr 50 mg PO BID Blood Pressure 10/02/24
ranolazine 500 mg tablet,extended release,12 hr 500 mg PO BID Heart Disease/Condition 10/02/24
cephalexin 500 mg capsule 1,000 mg (2 x 500 mg) PO TID 10 days #60 caps 10/07/24
Home Medication Changes
cephalexin 500 mg capsule 1,000 mg (2 x 500 mg) PO TID 10 days #60 caps 10/07/24
Pending Results: No
[2024-10-07 15:17] VITALS: BP 120/62
== END 2024-10-07 16:21 | disposition home or self-care (01) | DRG 872 ==
LOC: 4 WEST ACU 00:42
PROVIDERS: Hospitalist; Student in an Organized Health Care Education/Training Program; ADMITTING PHYSICIAN Hospitalist; ATTENDING PHYSICIAN Internal Medicine; EMERGENCY PHYSICIAN Emergency Medicine; FAMILY PHYSICIAN Family Medicine
DX: A41.9 Sepsis, unspecified organism (principal); L03.116 Cellulitis of left lower limb; Z68.42 Body mass index [BMI] 45.0-49.9, adult; E87.1 Hypo-osmolality and hyponatremia; Z79.82 Long term (current) use of aspirin; I25.10 Atherosclerotic heart disease of native coronary artery without angina pectoris; E66.01 Morbid (severe) obesity due to excess calories; G40.909 Epilepsy, unspecified, not intractable, without status epilepticus; Z95.5 Presence of coronary angioplasty implant and graft; L60.0 Ingrowing nail; I10 Essential (primary) hypertension; K21.9 Gastro-esophageal reflux disease without esophagitis; E78.00 Pure hypercholesterolemia, unspecified; I25.2 Old myocardial infarction
CPT/HCPCS: 73590; 80048; 80053; 83605; 85025; 85027; 87040; 93971; 96361; 96365; 97116; 97162; 97530; 99284